=== PATIENT | male | born 1990 | race Caucasian/White ===

== ENCOUNTER → 2016-12-04 | Outpatient (CLI) | payer OTHER ==
[~2016-12-04] MED LIST: FLUD0.1T PO; GADOBUTROL 7.5 MMOL/7.5 ML VIAL IV ONE; HYDR200T5 PO
--- NOTE | 2016-12-04 14:54 | KCIC ---
PROCEDURE MRI brain with and without contrast. HISTORY Convulsions. Speech disturbance, patient becoming harder to understand. Frequent falls and trauma. TECHNIQUE Sagittal T1, axial T1, axial T2, axial FLAIR, axial T2 gradient, diffusion imaging with ADC map, post-contrast axial, and post-contrast coronal whole brain series are provided. Oblique coronal T2 and oblique coronal FLAIR imaging through the temporal lobes is provided. 6 milliliters of intravenous Gadavist was administered without complication. COMPARISON August 09, 2011. FINDINGS There is new T1 hyperintensity and T2 hypointensity within the globus pallidus with increased signal on T2 and FLAIR imaging anteromedially (eye of tiger appearance). T2 hypointensity corresponds to blooming artifact on gradient imaging. Finding is symmetric from side to side. 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 Please correlate clinically. There may also be some T2 hypointensity within the temporal lobe white matter bilaterally anteriorly, apparent on the coronal images but not confirmed in the axial plane. Slight parietal volume loss is noted. There is no acute intracranial hemorrhage or extra-axial fluid collection. There is no mass effect or midline shift. There is no restricted diffusion to suggest an acute infarct. Cervicomedullary junction is unremarkable. Pituitary and suprasellar region are unremarkable. Intracranial flow voids are preserved. There is minimal ethmoid mucosal thickening and maxillary mucosal thickening, greater on the right. There is no pathologic enhancement. Oblique coronal imaging through the temporal lobes demonstrates no evidence of mesial temporal sclerosis or temporal lobe mass. IMPRESSION 1. New T1 hyperintensity and T2 hypointensity within the globus pallidus with increased signal on T2 and FLAIR imaging anteromedially. 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 2. Parietal sulci appear mildly prominent, symmetric from side to side, there may be minimal volume loss. Electronically signed by: Bartolome Infante MD (Dec 04, 2016 14:53:08)
== END | disposition home or self-care (01) ==
LOC: KCIC MRI 12:47
PROVIDERS: ATTEND Family Medicine
DX: R56.9 Unspecified convulsions (principal)
CPT/HCPCS: 70553; A9585